=== PATIENT | male | born 1985 | race Caucasian/White ===

== ENCOUNTER 2019-06-04 16:20 | Emergency (ER) | payer MEDICAID ==
[~2019-06-04] VITALS: Ht 185.4 cm; Wt 82.0 kg
[2019-06-04 17:54] VITALS: BP 131/95
== END 2019-06-04 18:05 | disposition home or self-care (01) ==
LOC: ED 17:57
DX: R07.89 Other chest pain (principal); F14.10 Cocaine abuse, uncomplicated
CPT/HCPCS: 36415; 71045; 80048; 82040; 83880; 84484; 85025; 93005; 96372; 99284; J1885